=== PATIENT | female | born 1950 | race Caucasian/White ===

== ENCOUNTER 2025-03-10 07:51 | Day surgery (SDC) | payer MEDICARE, OTHER ==
[2025-03-10] MEDS: Lactated Ringers 1,000 ML IV SCH (07:40)
[~2025-03-10 07:51] MED LIST: Dexamethasone 4 MG/ML 5 ML MDV ONE; Lidocaine 1% 5 ML VIAL ONE; Lidocaine 2% 11 ML Jelly Filled Syringe ONE; Ondansetron 4 MG/2 ML SDV ONE; Rocuronium 50 MG/5 ML Vial ONE; Ropivacaine 0.5% 5 MG/ML 30 ML SDV ONE; dexmedeTOMIDine HCl 200 MCG/2 ML SDV ONE; fentaNYL 100 MCG/2 ML SDV ONE; propofoL 1,000 MG/100 ML 100 ML ONE
[2025-03-10] MEDS ORDERED: ePHEDrine 50 MG/ML SDV ONE (09:07)
[2025-03-10] MEDS ORDERED: ceFAZolin 2 GM Vial ONE (09:12)
[2025-03-10] MEDS ORDERED: Lactated Ringers 1,000 ML ONE (09:27)
[2025-03-10] MEDS ORDERED: Ondansetron 4 MG/2 ML SDV IVPUSH PRN (09:48)
[2025-03-10] MEDS ORDERED: HYDROmorphone 0.5 MG/0.5 ML Syringe IVPUSH PRN (09:48)
[2025-03-10] MEDS ORDERED: fentaNYL 100 MCG/2 ML SDV IVPUSH PRN (09:48)
[2025-03-10] MEDS: Tranexamic Acid 1,000 MG/10 ML Vial ONE (10:13)
[2025-03-10] MEDS: VANCOmycin 1 GM SDV ONE (10:13)
[2025-03-10] MEDS ORDERED: Sugammadex Sodium 200 MG/2 ML VIAL IV ONE (10:21)
[2025-03-10] MEDS ORDERED: oxyCODONE 5 MG Tab PO PRN (11:24)
== END 2025-03-10 13:14 | disposition home or self-care (01) ==
LOC: JD.SDS 07:51
PROVIDERS: ATTEND Orthopaedic Surgery
DX: M19.011 Primary osteoarthritis, right shoulder (principal); E03.9 Hypothyroidism, unspecified; Z79.899 Other long term (current) drug therapy; Z79.890 Hormone replacement therapy
CPT/HCPCS: 23472; 64415; 76000; 97161; 97530; A9270; C1713; C1769; C1776; J0690; J1100; J2003; J2405; J2704; J2795; J3010; J7120; 01638; 99100; J3490